=== PATIENT | male | born 1970 | race Two or more races ===

== ENCOUNTER → 2021-04-12 | Emergency (ER) | payer OTHER ==
[~2021-04-12] VITALS: Ht 175.3 cm; Wt 141.5 kg
[~2021-04-12] MED LIST: FAMCICLOVIR500 MG PO; KETO10TA2 PO; NEURONTIN300 MG PO
== END | disposition home or self-care (01) ==
LOC: ER 19:01
DX: B02.8 Zoster with other complications (principal)